=== PATIENT | male | born 1950 | race Caucasian/White ===

== ENCOUNTER 2020-02-12 14:37 | Outpatient (CLI) | payer MEDICARE ==
[2020-02-13] MEDS ORDERED: XARELTO10 MG ORAL (12:06)
== END 2020-02-12 16:37 | disposition home or self-care (01) ==
DX: D64.9 Anemia, unspecified (principal); K21.9 Gastro-esophageal reflux disease without esophagitis; I10 Essential (primary) hypertension; F32.9 Major depressive disorder, single episode, unspecified; Z85.46 Personal history of malignant neoplasm of prostate